=== PATIENT | male | born 1965 | race Caucasian/White ===

== ENCOUNTER → 2023-10-30 | Day surgery (SDC) | payer OTHER ==
[~2023-10-30] MED LIST: PROPOFOL 10 MG/ML 20 ML VIAL IV ONE
[2023-10-30] MEDS: LACTATED RINGERS 1,000 ML IV SCH (08:15)
[2023-10-30 09:06] VITALS: TEMP 97.5
--- NOTE | 2023-10-30 09:15 | P.GSHP ---
History of Present Illness H&P Date: 10/30/23 Chief Complaint: screening colonoscopy this a 57-year-old male who presents today for screening colonoscopy. Patient denies a significant GI complaints. Past Medical History Past Medical History: Hyperlipidemia History of Any Multi-Drug Resistant Organisms: None Reported Additional Past Surgical History / Comment(s): thumb surgery, Past Anesthesia/Blood Transfusion Reactions: No Reported Reaction Smoking Status: Never smoker - Past Family History Father Family Medical History: No Reported History Medications and Allergies Home Medications Medication Instructions Recorded Confirmed Type Atorvastatin [Lipitor] 20 mg PO HS 10/28/23 10/30/23 History Allergies Allergy/AdvReac Type Severity Reaction Status Date / Time No Known Allergies Allergy Verified 10/28/23 08:37 Surgical - Exam Vital Signs Temp Pulse Resp BP Pulse Ox 97.5 F L 63 18 169/102 99 10/30/23 08:20 10/30/23 08:20 10/30/23 08:20 10/30/23 08:20 10/30/23 08:20 - General well developed, well nourished, no distress - Eyes PERRL - ENT normal pinna - Neck no masses - Respiratory normal expansion - Cardiovascular Rhythm: regular - Abdomen Abdomen: soft, non tender Assessment and Plan Assessment: we'll perform screening colonoscopy
--- NOTE | 2023-10-30 09:16 | P.OP ---
Date of Procedure: 10/30/23 Preoperative Diagnosis: screening colonoscopy Postoperative Diagnosis: normal colon Procedure(s) Performed: colonoscopy Anesthesia: MAC Surgeon: Bruce Sterling Pathology: none sent Condition: stable Disposition: PACU Description of Procedure: PROCEDURE: The patient was placed on the endoscopy table in the lateral position. Digital rectal examination was performed which revealed no abnormalities. The prostate was symmetrical without nodules. Flexible colonoscope was then placed in the patient's anus and passed throughout the entire colon. The ileocecal valve was visualized. The cecum, ascending, transverse, descending and sigmoid colon were normal. The rectum was normal as well. There were no masses, polyps or diverticula noted in the entire colon. SUMMARY OF FINDINGS: Normal colonoscopy.
[2023-10-30 09:53] VITALS: BP 142/89; PULSE 56; RESP 20
== END | disposition home or self-care (01) ==
LOC: ORWHC2ENDO 07:47
PROVIDERS: ATTEND Surgery
DX: Z12.11 Encounter for screening for malignant neoplasm of colon (principal); E78.5 Hyperlipidemia, unspecified; Z79.899 Other long term (current) drug therapy
CPT/HCPCS: 45378; J2704